=== PATIENT | female | born 1960 | race Asian ===

== ENCOUNTER 2019-01-16 22:11 | Emergency (ER) | payer OTHER ==
[~2019-01-16] VITALS: Ht 157.5 cm; Wt 68.0 kg
[2019-01-16 22:24] VITALS: Ht 157.5 cm; Wt 68.0 kg
[2019-01-16 23:23] VITALS: BP 143/68
== END 2019-01-16 23:23 | disposition home or self-care (01) ==
LOC: ED 22:11
DX: S70.12XA Contusion of left thigh, initial encounter (principal); R51 Headache; V89.2XXA Person injured in unspecified motor-vehicle accident, traffic, initial encounter; Y93.I9 Activity, other involving external motion; Y92.413 State road as the place of occurrence of the external cause; Y99.8 Other external cause status